=== PATIENT | male | born 1995 | race Caucasian/White ===

== ENCOUNTER 2017-02-02 00:17 | Emergency (ER) | payer OTHER ==
[~2017-02-02] VITALS: Ht 182.9 cm; Wt 84.0 kg
[2017-02-02 00:22] VITALS: BP 134/92; PULSE 87; TEMP 36.9; O2SAT 96; Ht 182.9 cm; Wt 84.0 kg
[2017-02-02] MEDS ORDERED: KETOROLAC TROMETHAMINE 60 MG/2 ML VIAL IM STA (00:31)
--- NOTE | 2017-02-02 00:57 | EMERGENCY ROOM VISIT NOTE ---
History First contact with patient: 00:24 Chief Complaint: BACK PAIN Stated Complaint: SEVERE BACK PAIN History of Present Illness The patient is a 22 year old male who presents to the Emergency Room with complaints of low back pain for the past few days it has a history of back pain. Patient states he thinks he might of slept on it wrong. Patient states because of the pain sometimes his legs feel weak but has no difficulty with ambulation. He describes the pain as aching, ranging in severity 7 out of 10 worse with movement and better with rest. Patient denies loss of bowel or bladder control, saddle anesthesia, fever, chills, IV drug abuse, abdominal pain , numbness, tingling. Patient denies fall or any trauma to his back. Review of Systems See HPI for pertinent positives & negatives. A total of 10 systems reviewed and were otherwise negative. Past Medical/Surgical History LBP Social History Smoking Status: Current Every Day Smoker Occupation Status: [employer] student Current/Historical Medications No Active Prescriptions or Reported Meds Allergies Coded Allergies: No Known Allergies (Unverified , 02/02/17) Physical Exam Vital Signs Date Time Temp Pulse Resp B/P Pulse Ox O2 Delivery O2 Flow Rate FiO2 02/02/17 00:22 36.9 87 16 134/92 96 Room Air Physical Exam VITALS: Vitals are noted on the nurse's note and reviewed by myself. Vital signs stable. GENERAL: Pleasant male ambulating around without difficulties, in no acute distress, nondiaphoretic, well-developed well-nourished. SKIN: Capillary reflex less than 2 seconds. HEENT: Normocephalic. PERRLA. EOMI. Nares patent. Mucous membranes moist. Neck is supple without nuchal rigidity. HEART: Regular rate and rhythm without murmurs gallops or rubs. LUNGS: Clear to auscultation bilaterally without wheezes, rales or rhonchi. No retractions or accessory muscle use. ABDOMEN: Positive bowel sounds x 4. Normal tympanic percussion. Soft, nontender, without masses or organomegaly. Carpenter sign negative. No guarding or rebound tenderness. MUSCULOSKELETAL: No gross musculoskeletal defects. No pedal edema. No calf tenderness. No thoracic or lumbar tenderness on exam. Negative straight leg raise. 5 out of 5 strength throughout. Patient can walk on toes and heels. NEURO: Patient was alert and oriented to person place and time. Normal sensation to light and sharp touch. Deep tendon reflexes 2+ patella bilaterally. No focal neurological deficits. Medical Decision & Procedures Medications Administered Medications (Trade) Dose Ordered Sig/Jagruti Route Start Time Stop Time Status Last Admin Dose Admin Ketorolac Tromethamine (Toradol Inj) 60 mg NOW STAT IM 02/02/17 00:31 02/02/17 00:32 DC 02/02/17 00:31 60 MG ED Course Prior records/ancillary studies reviewed. Triage Nursing notes reviewed. Additional history obtained from friend The patient's history was concerning for back pain. Differential diagnosis: Etiologies such as musculoskeletal, disc herniation, fracture, aortic disease, metastatic disease, cord compression, discitis, infection, renal colic, gastrointestinal, acute exacerbation of chronic back pain, sciatica, cauda equina, as well as others were entertained. Physical findings: As above. No focal neurologic findings noted. ER treatment provided: tordaol On reassessment the patient felt better. Diagnostics interpreted by me: deferred This appears to be consistent with lumbar strain. Patient is neurovascularly and neurologically intact. He felt much better and requested to leave. He was advised to stretch the area out and take anti-inflammatories as needed for the pain. He is advised to follow-up health services in a few days or here in the ER sooner for severe pain, inability to walk, numbness, tingling, worsening signs or symptoms or as needed. The patient's physical examination and detailed history did not reveal any red flags for back pain such as those listed in the differential diagnosis. Therefore advanced diagnostics and consultations were felt to be unwarranted. By the evaluation outlined above emergent etiologies such as fracture, aortic disease, metastatic disease, infection, renal colic, gastrointestinal, cord compression, cauda equina, as well as others were deemed relatively unlikely. The pt informed about the findings as listed above. All questions were answered and pleased with the treatment. Return instructions were outlined and the patient was discharged in stable condition. Referral: The patient was referred back to primary care physician for follow-up in 2 to 3 days for a recheck of the current condition. Medical Decision as above Impression Primary Impression: Lumbar strain Departure Information Dispostion Home / Self-Care Condition GOOD Prescriptions No Active Prescriptions or Reported Meds Forms HOME CARE DOCUMENTATION FORM, School Instructions, Return To School: 1 day IMPORTANT VISIT INFORMATION Patient Instructions Back Pain - [facility], My [facility] Additional Instructions Ibuprofen(Motrin, Advil) may be used for fever or pain. Use 600mg every six hours as needed. Take with food. Avoid using more than 2400mg in a 24 hour period. Do not use 2400mg per day for more than three consecutive days without physician direction. Prolonged inappropriate use can lead to stomach upset or ulcers. This medication can be taken if you need to drive, work, or perform activities which may be dangerous when taking narcotic pain medication. (AND/OR) Acetaminophen(Tylenol) may be used for fever or pain. Use 1000mg every six hours as needed. Avoid using more than 3000mg in a 24 hour period. This medication can be taken if you need to drive, work, or perform activities which may be dangerous when taking narcotic pain medication. Rest and avoid heavy lifting until your symptoms resolve and then gradually return to full activity. A good rule of thumb is if it hurts your back to perform a certain activity, then it should be avoided until you are healthy again. A heating pad, warm compresses, or a hot shower may help with tight muscles and can be done several times a day as needed. Continue current medications. Return to the ER immediately for any numbness, tingling, severe pain, loss of control of your bowels or bladder, inability to walk, or as needed. Follow up with your primary care physician within 3-5 days for a recheck of your current condition. School Instructions Return To School: 1 day Problem Qualifiers Primary Impression: Lumbar strain Encounter type: initial encounter Qualified Codes: S39.012A - Strain of muscle, fascia and tendon of lower back, initial encounter
[2017-02-02] MEDS ORDERED: CYCL10TA6 PO (21:26)
[2017-02-02] MEDS ORDERED: IBUP600T44 PO (21:26)
== END 2017-02-02 00:50 | disposition home or self-care (01) ==
LOC: C.EDB 00:18 → C.EDA 00:50
DX: S39.012A Strain of muscle, fascia and tendon of lower back, initial encounter (principal); X58.XXXA Exposure to other specified factors, initial encounter; F17.210 Nicotine dependence, cigarettes, uncomplicated

== ENCOUNTER 2017-02-02 17:00 | Emergency (ER) | payer OTHER ==
[~2017-02-02] VITALS: Ht 185.4 cm; Wt 96.0 kg
[2017-02-02 17:09] VITALS: Ht 185.4 cm; Wt 96.0 kg
[2017-02-02] MEDS ORDERED: KETOROLAC TROMETHAMINE 30 MG/ML VIAL IV STA (19:21)
[2017-02-02] MEDS ORDERED: ONDANSETRON INJ 2 MG/ML 2 ML VIAL IV STA (19:21)
[2017-02-02] MEDS ORDERED: MoRPHine SULFATE 4 MG/ML 1 ML CARP\\VIAL IV PRN (19:30)
--- NOTE | 2017-02-02 19:41 | EMERGENCY ROOM VISIT NOTE ---
History Report prepared by Christopher: Emanuel Johnson Under the Supervision of: Dr. Juan Antonio Lopes M.D. First contact with patient: 19:18 Chief Complaint: BACK PAIN Stated Complaint: BACK PAIN- REALLY BAD History of Present Illness The patient is a 22 year old male who presents to the Emergency Room with complaints of persistent lower back pain starting 2 days ago. The patient had a sudden onset of his pain. He has worsening pain with standing up and bending over. He has pain radiation down to bilateral lower extremities. He fell down twice today due to the severity of the pain. He currently rates a pain intensity of 10/10. He has been taking Advil without relief. The patient was evaluated in the Emergency Room earlier today for similar symptoms. He received a Toradol shot in the Emergency Room which provided him temporary relief. He woke up a few hours later with severe pain. He denies any falls or injuries prior to the onset of the pain. He denies any history of back pain. He denies fevers, cough, congestion, urinary symptoms, or any other complaints. Source of History: patient Onset: 2 days ago Position: back (lower) Symptom Intensity: 10/10 Timing: other (persistent ) Modifying Factors (Worsening): other (standing up and bending over) Modifying Factors (Relieving): other (Advil without relief; Toradol IM with temporary relief) Associated Symptoms: No cough, No fevers, No urinary symptoms Review of Systems See HPI for pertinent positives & negatives. A total of 10 systems reviewed and were otherwise negative. Past Medical & Surgical Medical Problems: (1) Blister of left heel Family History Patient reports no known family medical history. Social History Smoking Status: Current Every Day Smoker Marital Status: single Occupation Status: [employer] student Current/Historical Medications Scheduled Ibuprofen (Motrin), 600 MG PO TID Scheduled PRN Cyclobenzaprine Hcl (Flexeril), 10 MG PO TID PRN for Muscle Spasms Allergies Coded Allergies: No Known Allergies (Unverified , 02/02/17) Physical Exam Vital Signs Date Time Temp Pulse Resp B/P Pulse Ox O2 Delivery O2 Flow Rate FiO2 02/02/17 21:33 36.6 86 20 125/65 98 02/02/17 19:50 86 20 125/65 98 Room Air 02/02/17 17:09 36.6 91 18 138/72 98 Room Air Physical Exam GENERAL: Patient is in no acute distress. HEENT: No acute trauma, normocephalic atraumatic, mucous membranes moist, no nasal congestion, no scleral icterus. NECK: No stridor, no adenopathy, no meningismus, trachea is midline. LUNGS: Clear to auscultation bilaterally, no wheeze, no rhonchi, breath sounds equal. HEART: Without murmurs gallops or rubs, regular rate and rhythm. ABDOMEN: Soft, nontender, bowel sounds positive, no hernias, no peritonitis. BACK: Tenderness over the lower midline lumbar spine, no bony step off. Tenderness along both lower lumbar muscles. Pain worsens with movement. EXTREMITIES: No cyanosis or edema, full range of motion of all the joints without pain or difficulty, no signs for acute trauma. NEUROLOGIC: Oriented x 3, no acute motor or sensory deficits, no focal weakness. 2/4 patellar and Achilles reflexes bilaterally. SKIN: No rash, no jaundice, no diaphoresis. Medical Decision & Procedures ER Provider Diagnostic Interpretation: X-ray results as stated below per interpretation by me and the radiologist: LUMBAR SPINE 5 VIEWS HISTORY: Low Back pain COMPARISON: None. FINDINGS: There is no fracture. No subluxation. Disc spaces are preserved. IMPRESSION: No fracture or subluxation within the lumbar spine. Electronically signed by: Raulito Lorenzo M.D. 02/02/2017 8:15 PM Dictated Date/Time: 02/02/2017 8:14 PM Laboratory Results 02/02/17 19:50 Red Blood Count 5.60, Mean Corpuscular Volume 80.2, Mean Corpuscular Hemoglobin 28.4, Mean Corpuscular Hemoglobin Concent 35.4, Mean Platelet Volume 9.8, Neutrophils (%) (Auto) 65.5, Lymphocytes (%) (Auto) 25.2, Monocytes (%) (Auto) 7.3, Eosinophils (%) (Auto) 1.5, Basophils (%) (Auto) 0.2, Neutrophils # (Auto) 6.35, Lymphocytes # (Auto) 2.45, Monocytes # (Auto) 0.71, Eosinophils # (Auto) 0.15, Basophils # (Auto) 0.02 02/02/17 19:50 Test 02/02/17 19:50 White Blood Count 9.71 K/uL (4.8-10.8) Red Blood Count 5.60 M/uL (4.7-6.1) Hemoglobin 15.9 g/dL (14.0-18.0) Hematocrit 44.9 % (42-52) Mean Corpuscular Volume 80.2 fL (80-100) Mean Corpuscular Hemoglobin 28.4 pg (25-34) Mean Corpuscular Hemoglobin Concent 35.4 g/dl (32-36) Platelet Count 220 K/uL (130-400) Mean Platelet Volume 9.8 fL (7.4-10.4) Neutrophils (%) (Auto) 65.5 % Lymphocytes (%) (Auto) 25.2 % Monocytes (%) (Auto) 7.3 % Eosinophils (%) (Auto) 1.5 % Basophils (%) (Auto) 0.2 % Neutrophils # (Auto) 6.35 K/uL (1.4-6.5) Lymphocytes # (Auto) 2.45 K/uL (1.2-3.4) Monocytes # (Auto) 0.71 K/uL (0.11-0.59) Eosinophils # (Auto) 0.15 K/uL (0-0.5) Basophils # (Auto) 0.02 K/uL (0-0.2) RDW Standard Deviation 39.3 fL (36.4-46.3) RDW Coefficient of Variation 13.5 % (11.5-14.5) Immature Granulocyte % (Auto) 0.3 % Immature Granulocyte # (Auto) 0.03 K/uL (0.00-0.02) Erythrocyte Sedimentation Rate 7 mm/hr (0-14) Urine Color YELLOW Urine Appearance CLOUDY (CLEAR) Urine pH 6.0 (4.5-7.5) Urine Specific [place] 1.026 (1.000-1.030) Urine Protein NEG (NEG) Urine Glucose (UA) NEG (NEG) Urine Ketones NEG (NEG) Urine Occult Blood NEG (NEG) Urine Nitrite NEG (NEG) Urine Bilirubin NEG (NEG) Urine Urobilinogen NEG (NEG) Urine Leukocyte Esterase NEG (NEG) Urine WBC (Auto) 1-5 /hpf (0-5) Urine RBC (Auto) 0-4 /hpf (0-4) Urine Hyaline Casts (Auto) 1-5 /lpf (0-5) Urine Epithelial Cells (Auto) 20-30 /lpf (0-5) Urine Bacteria (Auto) NEG (NEG) Anion Gap 5.0 mmol/L (3-11) Est Creatinine Clear Calc Drug Dose 143.9 ml/min Estimated GFR () 125.0 Estimated GFR (Non- 107.9 BUN/Creatinine Ratio 16.9 (10-20) Calcium Level 9.1 mg/dl (8.5-10.1) C-Reactive Protein 0.34 mg/dl (0-0.29) Laboratory results reviewed by me. Medications Administered Medications (Trade) Dose Ordered Sig/Jagruti Route Start Time Stop Time Status Last Admin Dose Admin Ondansetron HCl (Zofran Inj) 4 mg NOW STAT IV 02/02/17 19:21 02/02/17 19:25 DC 02/02/17 19:41 4 MG Morphine Sulfate (MoRPHine SULFATE INJ) 4 mg Q15M PRN IV 02/02/17 19:30 02/02/17 22:02 DC 02/02/17 19:41 4 MG Ketorolac Tromethamine (Toradol Inj) 30 mg NOW STAT IV 02/02/17 19:21 02/02/17 19:25 DC 02/02/17 19:41 30 MG Cyclobenzaprine HCl (FLEXERIL 10MG Home Pack) 1 homepack UD ONCE PO 02/02/17 21:30 02/02/17 21:31 DC 02/02/17 21:33 1 HOMEPACK ED Course 1917: The patient was evaluated in room B03A. A complete history and physical exam was performed. 1920: Toradol Inj 30 mg IV, Zofran Inj 4 mg IV 1929: Morphine Sulfate 4 mg IV 2119: Reevaluated the patient. Discussed results and discharge instructions: He verbalized understanding and agreement. The patient is ready for discharge. 2129: Cyclobenzaprine HCl 1 homepack PO Medical Decision Differential diagnosis includes but is not limited to lumbar strain, lumbar fracture, herniated disc, lumbar stenosis, UTI, renal colic, abscess. There is no leukocytosis or concerning anemia. No significant electrolyte abnormality or kidney failure. Sedimentation rate is not significantly elevated. Urinalysis does not show hematuria or evidence for infection. Lumbar spine series shows some spasm of the muscles of the lumbar spine, no fracture or bony dislocation noted. On exam, the patient was not febrile or toxic. His reflexes were intact and normal bilaterally in both lower extremities. No focal neurologic deficits were identified. The patient's back pain did worsen with palpation and certain movements. The patient's pain seems musculoskeletal. He was given IV Zofran, IV morphine, IV Toradol. He seems improved but still has some pain with certain movement. Patient was felt stable for discharge. He is being discharged on Motrin and Flexeril, heat, massage and stretching were encouraged. He should avoid lifting. Upon discharge, the patient didn't quite feel right. He sat back down on the edge of the stretcher. I was going back to talk with him and he then got up and left. He felt better after sitting and getting his equilibrium back. He certainly may have been hit hard by the medications administered. In short, the patient was encouraged to return for worsening symptoms. He needs to rest, his workup was reassuring. Impression Primary Impression: Lower back pain Scribe Attestation The scribe's documentation has been prepared under my direction and personally reviewed by me in its entirety. I confirm that the note above accurately reflects all work, treatment, procedures, and medical decision making performed by me. Departure Information Dispostion Home / Self-Care Prescriptions Ibuprofen (Motrin) 600 Mg Tab 600 MG PO TID, #15 TAB With Food Prov: Juan Antonio Lopes M.D. 02/02/17 Cyclobenzaprine Hcl (FLEXERIL) 10 Mg Tab 10 MG PO TID Y for Muscle Spasms, #21 TAB Prov: Juan Antonio Lopes M.D. 02/02/17 Referrals No Doctor, Assigned (PCP) [facility] Forms HOME CARE DOCUMENTATION FORM, IMPORTANT VISIT INFORMATION Patient Instructions My [facility] Additional Instructions motrin 600 mg 3x per day for 5 days flexeril 3x per day for muscle relaxation no lifting or bending or stooping rest heat to the lower back will help massage may help return for fever or worsening symptoms
[2017-02-02 20:06] LABS: BASO % 0.2 %; BASO ABS # 0.02 K/uL (0-0.2); COMPLETE YES; EOS % 1.5 %; HEMATOCRIT 44.9 % (42-52); IG% 0.3 %; LYMPH % 25.2 %; LYMPH ABS # 2.45 K/uL (1.2-3.4); MEAN CELL VOLUME 80.2 fL (80-100); MEAN CORPUSCULAR HEMOGLOBIN 28.4 pg (25-34); MEAN CORPUSCULAR HGB CONC 35.4 g/dl (32-36); MEAN PLATELET VOLUME 9.8 fL (7.4-10.4); MONO % 7.3 %; NEUT % 65.5 %; PLATELET COUNT 220 K/uL (130-400); WHITE BLOOD COUNT 9.71 K/uL (4.8-10.8)
[2017-02-02 20:09] LABS: URINE APPEARANCE CLOUDY (CLEAR); URINE BILIRUBIN NEG (NEG); URINE COLOR YELLOW; URINE EPITHELIAL CELL AUTO 20-30 /lpf (0-5); URINE NITRITE NEG (NEG); URINE SPECIFIC GRAVITY 1.026 (1.000-1.030); UROBILINOGEN NEG (NEG); ZZUR CULT IF INDIC CLEAN CATCH NO
[2017-02-02 20:11] LABS: MANUAL MICROSCOPIC REQUIRED? NO; REVIEW REQ? NO
--- NOTE | 2017-02-02 20:17 | DIAGNOSTIC IMAGING REPORT ---
LUMBAR SPINE 5 VIEWS HISTORY: Low Back pain COMPARISON: None. FINDINGS: There is no fracture. No subluxation. Disc spaces are preserved. IMPRESSION: No fracture or subluxation within the lumbar spine. Electronically signed by: Raulito Lorenzo M.D. 02/02/2017 8:15 PM Dictated Date/Time: 02/02/2017 8:14 PM
[2017-02-02 20:29] LABS: BUN/CREATININE RATIO 16.9 (10-20); C-REACTIVE PROTEIN 0.34 mg/dl (0-0.29); CALCIUM 9.1 mg/dl (8.5-10.1); POTASSIUM 3.8 mmol/L (3.5-5.1)
[2017-02-02] MEDS ORDERED: IBUP600T44 PO (21:26)
[2017-02-02] MEDS ORDERED: CYCL10TA6 PO (21:26)
[2017-02-02] MEDS ORDERED: FLEXERIL HOME PACK 10 MG VIAL PO ONE (21:30)
[2017-02-02 21:33] VITALS: BP 125/65; PULSE 86; TEMP 36.6; O2SAT 98
== END 2017-02-02 21:35 | disposition home or self-care (01) ==
LOC: C.EDB 17:01
DX: M54.5 Low back pain (principal); W19.XXXA Unspecified fall, initial encounter; F17.210 Nicotine dependence, cigarettes, uncomplicated

== ENCOUNTER 2017-04-23 22:07 | Emergency (ER) | payer OTHER ==
[~2017-04-23] VITALS: Ht 188 cm; Wt 94.0 kg
[~2017-04-23 22:07] MED LIST: IBUP600T44 PO
[2017-04-23 22:12] VITALS: Ht 188 cm; Wt 94.0 kg
[2017-04-23] MEDS ORDERED: KETOROLAC TROMETHAMINE 30 MG/ML VIAL IV STA (22:34)
[2017-04-23] MEDS ORDERED: SODIUM CHLORIDE 0.9% 1000ML 2,000 ML IV STA (22:34)
[2017-04-23 23:00] LABS: BASO % 0.1 %; BASO ABS # 0.01 K/uL (0-0.2); COMPLETE YES; EOS % 1.2 %; HEMATOCRIT 44.2 % (42-52); IG% 0.3 %; LYMPH % 19.3 %; LYMPH ABS # 1.33 K/uL (1.2-3.4); MEAN CELL VOLUME 78.5 fL (80-100); MEAN CORPUSCULAR HEMOGLOBIN 28.4 pg (25-34); MEAN CORPUSCULAR HGB CONC 36.2 g/dl (32-36); MEAN PLATELET VOLUME 9.3 fL (7.4-10.4); NEUT % 72.1 %; PLATELET COUNT 170 K/uL (130-400); RED BLOOD COUNT 5.63 M/uL (4.7-6.1); WHITE BLOOD COUNT 6.88 K/uL (4.8-10.8)
--- NOTE | 2017-04-23 23:02 | DIAGNOSTIC IMAGING REPORT ---
CHEST 2 VIEWS ROUTINE CLINICAL HISTORY: cough/fever COMPARISON STUDY: No previous studies for comparison. FINDINGS: The cardiac and mediastinal contours are normal. There is no evidence of focal pulmonary consolidation. There is no evidence of failure. No pleural effusions are visualized.[ IMPRESSION: No active disease in the chest. Electronically signed by: Richy Aguayo M.D. 04/23/2017 11:01 PM Dictated Date/Time: 04/23/2017 11:00 PM
[2017-04-23 23:17] LABS: BUN/CREATININE RATIO 10.1 (10-20); CALCIUM 8.3 mg/dl (8.5-10.1); POTASSIUM 3.6 mmol/L (3.5-5.1)
[2017-04-24 00:08] LABS: URINE APPEARANCE CLEAR (CLEAR); URINE BILIRUBIN NEG (NEG); URINE COLOR YELLOW; URINE EPITHELIAL CELL AUTO 20-30 /lpf (0-5); URINE NITRITE NEG (NEG); URINE PH 6.5 (4.5-7.5); URINE SPECIFIC GRAVITY 1.015 (1.000-1.030); UROBILINOGEN NEG (NEG); ZZUR CULT IF INDIC CLEAN CATCH NO
[2017-04-24 00:21] LABS: MANUAL MICROSCOPIC REQUIRED? NO; REVIEW REQ? NO
[2017-04-24 00:42] LABS: INFLUENZA A PCR Neg for Influ A (NEG); INFLUENZA B PCR Neg for Influ B (NEG)
[2017-04-24 01:10] VITALS: BP 116/66; PULSE 85; TEMP 37; O2SAT 98
--- NOTE | 2017-04-24 02:03 | EMERGENCY ROOM VISIT NOTE ---
History First contact with patient: 22:25 Chief Complaint: FEVER Stated Complaint: FEVER,BACK PAIN History of Present Illness The patient is a 22 year old male who presents to the Emergency Room with complaints of fever, chills, myalgias and arthralgias with low back pain for the past 4 days. Patient flew back from [facility] 4 days ago. Patient states that history chronic back pain and symptoms feel similar. Patient denies IV drug abuse, chest pain, dyspnea, headache, neck stiffness, sore throat, earache, sinus pain or congestion, abdominal pain, vomiting, diarrhea, testicular pain, penile pain. He took Tylenol 2 hours ago. No travel to [place] or to [place]. Review of Systems See HPI for pertinent positives & negatives. A total of 10 systems reviewed and were otherwise negative. Past Medical/Surgical History Medical Problems: (1) Blister of left heel back pain Family History Patient reports no known family medical history. Social History Smoking Status: Current Every Day Smoker Drug Use: none Marital Status: single Occupation Status: [employer] student Current/Historical Medications No Active Prescriptions or Reported Meds Allergies Coded Allergies: No Known Allergies (Unverified , 02/02/17) Physical Exam Vital Signs Date Time Temp Pulse Resp B/P (MAP) Pulse Ox O2 Delivery O2 Flow Rate FiO2 04/24/17 01:10 37.0 85 16 116/66 98 Room Air 04/23/17 23:42 37.1 91 16 122/62 98 Room Air 04/23/17 22:12 37.7 131 20 121/69 96 Room Air Physical Exam VITALS: Vitals are noted on the nurse's note and reviewed by myself. Vital signs febrile GENERAL:pleasant male, in no acute distress, nondiaphoretic, well-developed well -nourished. SKIN: The skin was without rashes, erythema, edema, or bruising. There is no tenting of the skin. Capillary reflex less than 2 seconds. HEAD: Normocephalic atraumatic. EARS: External auditory canals clear, tympanic membranes pearly null without erythema or effusion bilaterally. EYES: Pupils equal round and reactive to light and accommodation. Conjunctivae without injection, sclerae without icterus. Extraocular movements intact. NOSE: Patent, turbinates without inflammation or discharge. No sinus tenderness. MOUTH: Mucous membranes mildly dry . Pharynx without erythema or exudate. Uvula midline. Airway patent. Tongue does not deviate. NECK: Supple without nuchal rigidity. No lymphadenopathy. No thyromegaly. Cervical spine is nontender. No JVD. No meningeal signs HEART: Regular rate and rhythm without murmurs gallops or rubs. LUNGS: Clear to auscultation bilaterally without wheezes, rales or rhonchi. No dullness to percussion. No retractions or accessory muscle use. ABDOMEN: Positive bowel sounds x 4. Normal tympanic percussion. Soft, nontender, without masses or organomegaly. Carpenter sign negative. No guarding or rebound tenderness. No CVA tenderness MUSCULOSKELETAL: No muscle atrophy, erythema, or edema noted. No thoracic or lumbar tenderness on exam. Negative straight leg raise. Patient can walk on toes and heels. NEURO: Patient was alert and oriented to person place and time. Normal sensation to light and sharp touch. No focal neurological deficits. Medical Decision & Procedures Laboratory Results 04/23/17 22:47 Red Blood Count 5.63, Mean Corpuscular Volume 78.5, Mean Corpuscular Hemoglobin 28.4, Mean Corpuscular Hemoglobin Concent 36.2, Mean Platelet Volume 9.3, Neutrophils (%) (Auto) 72.1, Lymphocytes (%) (Auto) 19.3, Monocytes (%) (Auto) 7.0, Eosinophils (%) (Auto) 1.2, Basophils (%) (Auto) 0.1, Neutrophils # (Auto) 4.96, Lymphocytes # (Auto) 1.33, Monocytes # (Auto) 0.48, Eosinophils # (Auto) 0.08, Basophils # (Auto) 0.01 04/23/17 22:47 Test 04/23/17 22:46 04/23/17 22:47 04/23/17 22:56 04/23/17 23:50 Influenza Type A (RT-PCR) Neg for Influ A (NEG) Influenza Type A Antigen Neg for Influ A (NEG) Influenza Type B Antigen Neg for Influ B (NEG) Influenza Type B (RT-PCR) Neg for Influ B (NEG) White Blood Count 6.88 K/uL (4.8-10.8) Red Blood Count 5.63 M/uL (4.7-6.1) Hemoglobin 16.0 g/dL (14.0-18.0) Hematocrit 44.2 % (42-52) Mean Corpuscular Volume 78.5 fL (80-100) Mean Corpuscular Hemoglobin 28.4 pg (25-34) Mean Corpuscular Hemoglobin Concent 36.2 g/dl (32-36) Platelet Count 170 K/uL (130-400) Mean Platelet Volume 9.3 fL (7.4-10.4) Neutrophils (%) (Auto) 72.1 % Lymphocytes (%) (Auto) 19.3 % Monocytes (%) (Auto) 7.0 % Eosinophils (%) (Auto) 1.2 % Basophils (%) (Auto) 0.1 % Neutrophils # (Auto) 4.96 K/uL (1.4-6.5) Lymphocytes # (Auto) 1.33 K/uL (1.2-3.4) Monocytes # (Auto) 0.48 K/uL (0.11-0.59) Eosinophils # (Auto) 0.08 K/uL (0-0.5) Basophils # (Auto) 0.01 K/uL (0-0.2) RDW Standard Deviation 36.7 fL (36.4-46.3) RDW Coefficient of Variation 13.0 % (11.5-14.5) Immature Granulocyte % (Auto) 0.3 % Immature Granulocyte # (Auto) 0.02 K/uL (0.00-0.02) Anion Gap 9.0 mmol/L (3-11) Est Creatinine Clear Calc Drug Dose 137.1 ml/min Estimated GFR () 125.0 Estimated GFR (Non- 107.9 BUN/Creatinine Ratio 10.1 (10-20) Calcium Level 8.3 mg/dl (8.5-10.1) Bedside Lactic Acid Venous 1.12 mmol/L (0.90-1.70) Urine Color YELLOW Urine Appearance CLEAR (CLEAR) Urine pH 6.5 (4.5-7.5) Urine Specific [place] 1.015 (1.000-1.030) Urine Protein NEG (NEG) Urine Glucose (UA) NEG (NEG) Urine Ketones NEG (NEG) Urine Occult Blood TRACE (NEG) Urine Nitrite NEG (NEG) Urine Bilirubin NEG (NEG) Urine Urobilinogen NEG (NEG) Urine Leukocyte Esterase TRACE (NEG) Urine WBC (Auto) 5-10 /hpf (0-5) Urine RBC (Auto) 0-4 /hpf (0-4) Urine Hyaline Casts (Auto) 1-5 /lpf (0-5) Urine Epithelial Cells (Auto) 20-30 /lpf (0-5) Urine Bacteria (Auto) NEG (NEG) Medications Administered Medications (Trade) Dose Ordered Sig/Jagruti Route Start Time Stop Time Status Last Admin Dose Admin Ketorolac Tromethamine (Toradol Inj) 30 mg NOW STAT IV 04/23/17 22:34 04/23/17 22:37 DC 04/23/17 23:40 30 MG Sodium Chloride 2,000 ml @ 999 mls/hr Q2H1M STAT IV 04/23/17 22:34 04/24/17 00:34 DC 04/23/17 22:34 999 MLS/HR ED Course Prior records/ancillary studies reviewed. Triage Nursing notes reviewed. The patient's history was concerning for fever. Differential diagnosis: Etiologies such as viral syndrome, otitis, pharyngitis, pneumonia, influenza, meningitis, urinary tract infection, sepsis, bacteremia, as well as others were entertained. Physical examination: Patient is alert, interactive and well-appearing ER treatment provided: NSS On reassessment the patient felt better. Diagnostics interpreted by me: The labs revealed negative lactic acid. No leukocytosis. Blood cultures pending Imaging studies: CHEST 2 VIEWS ROUTINE CLINICAL HISTORY: cough/fever COMPARISON STUDY: No previous studies for comparison. FINDINGS: The cardiac and mediastinal contours are normal. There is no evidence of focal pulmonary consolidation. There is no evidence of failure. No pleural effusions are visualized.[ IMPRESSION: No active disease in the chest. Electronically signed by: Richy Aguayo M.D. This appears to be consistent with fever most afebrile in etiology. Patient is well-appearing. Patient had no history of IV drug abuse and adamantly he denied this. He had no lumbar spinal tenderness on clinical exam. He had no vertebral spinal tenderness at all. He states he felt much better after being medicated as above. He was advised to return to the ER immediately for high fevers, neck stiffness, lethargy, worsening signs or symptoms or as needed. Patient was neurovascularly and neurologically intact. He did not have acute abdomen on exam. No pneumonia on x-ray.. By the evaluation outlined above emergent etiologies such as otitis, pharyngitis, pneumonia, meningitis, urinary tract infection, sepsis, bacteremia, as well as others were deemed relatively unlikely. Patient also denied travel to any other place besides [facility]. He was visiting his family. The pt informed about the findings as listed above. All questions were answered and pleased with the treatment. Return instructions were outlined and the patient was discharged in stable condition. case reviewed with my Attending Referral: The patient was referred back to their primary care physician for follow-up in 2 to 3 days for a recheck of the current condition. Case reviewed with my attending Medical Decision as above Impression Primary Impression: Fever Departure Information Prescriptions No Active Prescriptions or Reported Meds Referrals No Doctor, Assigned (PCP) Patient Instructions My [facility] Problem Qualifiers Primary Impression: Fever Fever type: unspecified Qualified Codes: R50.9 - Fever, unspecified
== END 2017-04-24 01:14 | disposition home or self-care (01) ==
LOC: C.EDB 22:08 → C.EDC 04-24 01:14
DX: R50.9 Fever, unspecified (principal); M79.1 Myalgia; F17.200 Nicotine dependence, unspecified, uncomplicated

== ENCOUNTER 2017-05-01 22:24 | Emergency (ER) | payer OTHER ==
[~2017-05-01] VITALS: Ht 182.9 cm; Wt 92.8 kg
[2017-05-01 22:27] VITALS: TEMP 36.7; Ht 182.9 cm; Wt 92.8 kg
[2017-05-01] MEDS ORDERED: SODIUM CHLORIDE 0.9% 1000ML 1,000 ML IV STA (22:43)
[2017-05-01 23:08] LABS: BASO % 0.1 %; BASO ABS # 0.01 K/uL (0-0.2); COMPLETE YES; EOS % 1.5 %; HEMATOCRIT 42.8 % (42-52); IG% 0.4 %; LYMPH % 24.4 %; LYMPH ABS # 1.66 K/uL (1.2-3.4); MEAN CELL VOLUME 78.2 fL (80-100); MEAN CORPUSCULAR HEMOGLOBIN 27.8 pg (25-34); MEAN CORPUSCULAR HGB CONC 35.5 g/dl (32-36); MEAN PLATELET VOLUME 9.8 fL (7.4-10.4); MONO % 7.4 %; NEUT % 66.2 %; PLATELET COUNT 174 K/uL (130-400); RED BLOOD COUNT 5.47 M/uL (4.7-6.1)
[2017-05-01] MEDS ORDERED: OPTIRAY 320 IV PRN (23:15)
[2017-05-01 23:30] LABS: BUN/CREATININE RATIO 12.4 (10-20); CREATININE 0.99 mg/dl (0.60-1.40); POTASSIUM 3.4 mmol/L (3.5-5.1)
[2017-05-01 23:33] LABS: ALB/GLOB RATIO 0.8 (0.9-2)
[2017-05-02 00:01] LABS: URINE APPEARANCE CLEAR (CLEAR); URINE BILIRUBIN NEG (NEG); URINE COLOR YELLOW; URINE NITRITE NEG (NEG); URINE SPECIFIC GRAVITY 1.013 (1.000-1.030); UROBILINOGEN NEG (NEG); ZZUR CULT IF INDIC CLEAN CATCH NO
[2017-05-02 00:14] LABS: MANUAL MICROSCOPIC REQUIRED? NO; REVIEW REQ? NO
[2017-05-02 00:22] LABS: LYME DISEASE AB IGG NEG (NEG); LYME DISEASE AB IGM NEG (NEG)
[2017-05-02] MEDS ORDERED: IBUPROFEN 800 MG TAB PO STA (02:59)
--- NOTE | 2017-05-02 03:01 | EMERGENCY ROOM VISIT NOTE ---
History First contact with patient: 22:33 Chief Complaint: FEVER Stated Complaint: FEVER, STOMACH ACHE History of Present Illness The patient is a 22 year old male who presents to the Emergency Room with complaints of fever and abdominal pain. The patient states that last week, he developed a fever and body aches. He was seen here with a negative workup. He states that this week, he has had similar symptoms but developed a stomach ache , diarrhea and dysuria today. He states his fever has been persistent, but has not been taking his temperature at home. He has been taking Tylenol at home for symptoms. He denies any blood in the stools, nausea or vomiting. He denies any history of abdominal surgery. Review of Systems A complete 10 point review of systems was reviewed with the patient with pertinent positives and negatives as per history of present illness. All else were negative. Past Medical/Surgical History Medical Problems: (1) Blister of left heel Family History Patient reports no known family medical history. Social History Smoking Status: Current Every Day Smoker Drug Use: none Marital Status: single Occupation Status: [employer] student Current/Historical Medications Scheduled PRN Dicyclomine Hcl (Bentyl), 1 CAP PO TID PRN for Pain Allergies Coded Allergies: No Known Allergies (Unverified , 02/02/17) Physical Exam Vital Signs Date Time Temp Pulse Resp B/P (MAP) Pulse Ox O2 Delivery O2 Flow Rate FiO2 05/02/17 03:22 100 19 120/73 100 05/02/17 01:25 77 18 120/68 98 Room Air 05/01/17 23:26 77 18 132/81 99 Room Air 05/01/17 22:27 36.7 102 18 130/86 99 Room Air Physical Exam VITALS: Vitals are noted on the nurse's note and reviewed by myself. Vital signs stable. GENERAL: This is a 22-year-old male, in no acute distress, nondiaphoretic, well- developed well-nourished. HEENT: Normocephalic. PERRLA. EOMI. Nares patent. Mucous membranes moist. Neck is supple without nuchal rigidity. HEART: Regular rate and rhythm without murmurs gallops or rubs. LUNGS: Clear to auscultation bilaterally without wheezes, rales or rhonchi. ABDOMEN: Positive bowel sounds x 4. Soft, mild tenderness in the suprapubic region and right lower quadrant. No guarding or rebound tenderness. NEURO: Patient was alert and oriented to person place and time. Medical Decision & Procedures ER Provider Diagnostic Interpretation: CT ABDOMEN & PELVIS: Normal appendix. Colonic haustral/mural thickening, likely involving entire colon, although evaluation of transverse colon and distal is limited by med or distention. Mild adjacent fat stranding of the ascending colon. Findings are compatible with colitis which may be infectious or inflammatory in etiology. Mild prominence of mesenteric lymph nodes, not significantly enlarged. No bowel obstruction. No free air or free fluid. 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 Solid organs otherwise unremarkable. Radiologist: Rangel Marcus MD Laboratory Results 05/01/17 23:00 Red Blood Count 5.47, Mean Corpuscular Volume 78.2, Mean Corpuscular Hemoglobin 27.8, Mean Corpuscular Hemoglobin Concent 35.5, Mean Platelet Volume 9.8, Neutrophils (%) (Auto) 66.2, Lymphocytes (%) (Auto) 24.4, Monocytes (%) (Auto) 7.4, Eosinophils (%) (Auto) 1.5, Basophils (%) (Auto) 0.1, Neutrophils # (Auto) 4.50, Lymphocytes # (Auto) 1.66, Monocytes # (Auto) 0.50, Eosinophils # (Auto) 0.10, Basophils # (Auto) 0.01 05/01/17 23:00 Test 05/01/17 23:00 05/01/17 23:05 05/01/17 23:41 White Blood Count 6.80 K/uL (4.8-10.8) Red Blood Count 5.47 M/uL (4.7-6.1) Hemoglobin 15.2 g/dL (14.0-18.0) Hematocrit 42.8 % (42-52) Mean Corpuscular Volume 78.2 fL (80-100) Mean Corpuscular Hemoglobin 27.8 pg (25-34) Mean Corpuscular Hemoglobin Concent 35.5 g/dl (32-36) Platelet Count 174 K/uL (130-400) Mean Platelet Volume 9.8 fL (7.4-10.4) Neutrophils (%) (Auto) 66.2 % Lymphocytes (%) (Auto) 24.4 % Monocytes (%) (Auto) 7.4 % Eosinophils (%) (Auto) 1.5 % Basophils (%) (Auto) 0.1 % Neutrophils # (Auto) 4.50 K/uL (1.4-6.5) Lymphocytes # (Auto) 1.66 K/uL (1.2-3.4) Monocytes # (Auto) 0.50 K/uL (0.11-0.59) Eosinophils # (Auto) 0.10 K/uL (0-0.5) Basophils # (Auto) 0.01 K/uL (0-0.2) RDW Standard Deviation 36.9 fL (36.4-46.3) RDW Coefficient of Variation 13.0 % (11.5-14.5) Immature Granulocyte % (Auto) 0.4 % Immature Granulocyte # (Auto) 0.03 K/uL (0.00-0.02) Anion Gap 8.0 mmol/L (3-11) Est Creatinine Clear Calc Drug Dose 130.7 ml/min Estimated GFR () 126.5 Estimated GFR (Non- 109.2 BUN/Creatinine Ratio 12.4 (10-20) Calcium Level 8.0 mg/dl (8.5-10.1) Total Bilirubin 0.4 mg/dl (0.2-1) Aspartate Amino Transf (AST/SGOT) 31 U/L (15-37) Alanine Aminotransferase (ALT/SGPT) 143 U/L (12-78) Alkaline Phosphatase 100 U/L (45-117) Total Protein 7.7 gm/dl (6.4-8.2) Albumin 3.5 gm/dl (3.4-5.0) Globulin 4.2 gm/dl (2.5-4.0) Albumin/Globulin Ratio 0.8 (0.9-2) Lipase 139 U/L (73-393) Lyme Disease IgG Antibody NEG (NEG) Lyme Disease IgM Antibody NEG (NEG) Monoscreen NEG (NEG) Urine Color YELLOW Urine Appearance CLEAR (CLEAR) Urine pH 7.0 (4.5-7.5) Urine Specific [place] 1.013 (1.000-1.030) Urine Protein NEG (NEG) Urine Glucose (UA) NEG (NEG) Urine Ketones NEG (NEG) Urine Occult Blood TRACE (NEG) Urine Nitrite NEG (NEG) Urine Bilirubin NEG (NEG) Urine Urobilinogen NEG (NEG) Urine Leukocyte Esterase NEG (NEG) Urine WBC (Auto) 1-5 /hpf (0-5) Urine RBC (Auto) 0-4 /hpf (0-4) Urine Hyaline Casts (Auto) 0 /lpf (0-5) Urine Epithelial Cells (Auto) 10-20 /lpf (0-5) Urine Bacteria (Auto) NEG (NEG) Medications Administered Medications (Trade) Dose Ordered Sig/Jagruti Route Start Time Stop Time Status Last Admin Dose Admin Sodium Chloride 1,000 ml @ 999 mls/hr Q1H1M STAT IV 05/01/17 22:43 05/01/17 23:43 DC 05/01/17 22:43 999 MLS/HR Ibuprofen (Motrin Tab) 800 mg NOW STAT PO 05/02/17 02:59 05/02/17 03:01 DC 05/02/17 02:59 800 MG ED Course The patient was evaluated as above. Labs were drawn and IV access was obtained. Patient was medicated with [address] of the abdomen and pelvis was performed and read by kathy as above. Patient was reevaluated and findings were discussed. He was given 800 mg ibuprofen for pain. Discharge instructions were reviewed with the patient. The patient verbalized understanding of my assessment and treatment plan and was discharged home in good condition. Medical Decision Differential diagnosis includes viral illness, gastroenteritis, colitis, mesenteric adenitis, appendicitis, cholecystitis, urinary tract infection, among others. The patient is a 22-year-old male who presents today complaining of with fever as well as diarrhea and vomiting. Labs revealed no leukocytosis, anemia or concerning electrolyte abnormalities. Urinalysis was not suggestive of infection. Patient is afebrile and vital signs are stable. CT of the abdomen and pelvis showed evidence of a nonspecific colitis. The patient was not able to provide a stool sample while in the emergency department. He was given an order to have his stool tested as an outpatient. He was given a prescription for Bentyl. Conservative measures were discussed and the patient was encouraged to follow-up with [facility] within 48 hours. The patient's case was reviewed with Dr. Navarro, ED attending physician, who agreed with my assessment and treatment plan. Based on the patient's presentation and work up, I feel the patient is stable for outpatient treatment. The patient was educated to return to the emergency department for any worsening of their current condition or new/concerning symptoms. He will follow up with [facility]. Medication reconciliation: I attest that I have personally reviewed the patient 's current medication list. Blood pressure screening: Patient was found to have normal blood pressure on screening and does not require follow-up. Impression Primary Impression: Colitis Departure Information Dispostion Home / Self-Care Condition GOOD Prescriptions Dicyclomine Hcl (BENTYL) 10 Mg Cap 1 CAP PO TID Y for Pain for 7 Days, #21 CAP Prov: Aissatou Cruz ., KAYA 05/02/17 Referrals [facility] (PCP) Patient Instructions My [facility] Additional Instructions For pain/fever control, you can use the following [id number] medicines ( if >12 yo): - Regular strength (325mg/tab) Tylenol (acetaminophen) 2 tabs every 4-6 hours as needed. Do not exceed 12 tablets in a 24 hour period. Avoid taking more than 4 grams (4000 mg) of Tylenol per day. This includes any other sources of acetaminophen you may take on a regular basis. - Regular strength (200 mg/tab) Advil (ibuprofen) 1-2 tabs every 4-6 hours as needed. Do not exceed a dose of 3200 mg per day. Take your stool sample to the lab to have it tested. Drink plenty of fluids, especially water or Gatorade. Call [facility] on Wednesday to schedule follow-up within 48 hours. Return to the emergency department with worsening pain, high fevers not controlled by Tylenol/ibuprofen, vomiting or any other new/concerning symptoms.
[2017-05-02] MEDS ORDERED: DICY10CA55 PO (03:03)
[2017-05-02 03:22] VITALS: BP 120/73; PULSE 100; O2SAT 100
--- NOTE | 2017-05-02 07:58 | DIAGNOSTIC IMAGING REPORT ---
ABDOMEN AND PELVIS CT WITH IV AND ORAL CONTRAST CT DOSE: 583.24 mGy.cm HISTORY: RLQ pain, fever TECHNIQUE: Multiaxial CT images of the abdomen and pelvis were performed following the use of intravenous and oral contrast. COMPARISON STUDY: None. FINDINGS: The lung bases are clear. The liver, gallbladder, spleen, adrenal glands, pancreas, and right kidney are unremarkable. 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 A few enlarged mesenteric lymph nodes. Dominant lymph node measures 2.6 x 1.1 cm. Normal bladder. Normal appendix. No evidence for bowel obstruction. Mild bowel wall thickening involving the transverse colon, descending colon, and sigmoid colon. This is consistent with a nonspecific colitis. IMPRESSION: 1. Thickening involving the majority of the colon as described above consistent with a nonspecific colitis. 2. Mesenteric lymphadenopathy. This could be reactive. However, one month abdomen and pelvis CT follow up is recommended to ensure resolution. 3. Normal appendix. Electronically signed by: Raulito Lorenzo M.D. 05/02/2017 7:57 AM Dictated Date/Time: 05/02/2017 7:53 AM
== END 2017-05-02 03:24 | disposition home or self-care (01) ==
LOC: C.EDB 22:25
DX: K52.9 Noninfective gastroenteritis and colitis, unspecified (principal); F17.210 Nicotine dependence, cigarettes, uncomplicated

== ENCOUNTER 2017-07-27 17:33 | Emergency (ER) | payer OTHER ==
[~2017-07-27] VITALS: Ht 182.9 cm; Wt 89.4 kg
[2017-07-27 17:49] VITALS: Ht 182.9 cm; Wt 89.4 kg
[2017-07-27] MEDS ORDERED: SODIUM CHLORIDE 0.9% 1000ML 1,000 ML IV ONE (18:45)
[2017-07-27] MEDS ORDERED: KETOROLAC TROMETHAMINE 30 MG/ML VIAL IV STA (18:45)
--- NOTE | 2017-07-27 19:04 | EMERGENCY ROOM VISIT NOTE ---
History First contact with patient: 18:24 Chief Complaint: FEVER Stated Complaint: FEVER, SORE THROAT History of Present Illness The patient is a 22 year old male who presents to the Emergency Room with complaints of a fever and sore throat for the last 3 days. The patient did not take his temperature at home. He denies any sick contacts. He has been trying Tylenol with minimal relief of his symptoms. He is up-to-date on his vaccines. The patient traveled from his home country of [facility] approximately 1 month ago. He denies any significant headache or neck pain. Review of Systems 10 system review performed and negative unless noted in HPI or below Past Medical/Surgical History Medical Problems: (1) Blister of left heel Otherwise healthy Family History Patient reports no known family medical history. Cancer, hypertension Social History Smoking Status: Current Every Day Smoker Drug Use: none Marital Status: single Occupation Status: [employer] student Current/Historical Medications Scheduled Amoxicillin (Amoxil), 1 CAP PO TID Physical Exam Vital Signs Date Time Temp Pulse Resp B/P (MAP) Pulse Ox O2 Delivery O2 Flow Rate FiO2 07/27/17 20:54 93 16 125/82 99 07/27/17 19:23 36.7 83 16 126/66 99 Room Air 07/27/17 17:49 37.1 100 18 129/75 98 Room Air Physical Exam VITALS: Vitals are noted on the nurse's note and reviewed by myself. Vital signs stable. GENERAL: 22-year-old male, mildly uncomfortable, in no acute distress, nondiaphoretic, well-developed well-nourished. SKIN: The skin was without rashes, acne noted to the back HEAD: Normocephalic atraumatic. EARS: External auditory canals clear, tympanic membranes pearly null without erythema or effusion bilaterally. EYES: Conjunctivae without injection, sclerae without icterus. Extraocular movements intact. NOSE: Patent, turbinates without inflammation or discharge. No sinus tenderness. MOUTH: Mucous membranes slightly dry. tonsils are moderately enlarged with white exudate. Pharynx without erythema or exudate. Uvula midline. Airway patent. Tongue does not deviate. NECK: Supple without nuchal rigidity. No lymphadenopathy. Cervical spine is nontender. No JVD. HEART: Regular rate and rhythm without murmurs gallops or rubs. LUNGS: Clear to auscultation bilaterally without wheezes, rales or rhonchi. No accessory muscle use. ABDOMEN: Positive bowel sounds x 4.Soft, nontender, without organomegaly. MUSCULOSKELETAL: No muscle atrophy, erythema, or edema noted. Strength 5/5 throughout. NEURO: Patient was alert and oriented to person place and time. Normal sensation to touch. No focal neurological deficits. Medical Decision & Procedures ER Provider Diagnostic Interpretation: CHEST 2 VIEWS ROUTINE CLINICAL HISTORY: Cough and fever. COMPARISON STUDY: Chest radiograph April 23, 2017. FINDINGS: Lung volumes are normal. No pneumothorax or pleural effusion is present. No consolidation is identified. Pulmonary vascularity is normal. Cardiomediastinal silhouette is normal. IMPRESSION: No acute cardiopulmonary findings. Electronically signed by: Hardeep Grace M.D. 07/27/2017 8:14 PM Dictated Date/Time: 07/27/2017 8:13 PM The status of this report is Signed. Draft = Not yet reviewed or approved by Radiologist. Signed = Reviewed and approved by Radiologist. <AttendingPhy></AttendingPhy> <FamilyPhy>[facility]</FamilyPhy> <PrimaryPhy>[facility]</PrimaryPhy> <UnitNumber>[id number]</ UnitNumber> <VisitNumber>[id number]</VisitNumber> <PatientName>MARYKERRI GUERRIERYISEL </PatientName> <DateOfBirth>1995</DateOfBirth> <Location>C.EDB</Location> <ServiceDate>07/27/17</ServiceDate> <MNE>ESINDI</MNE> <OrderingPhy>Yvonne Chandler PA-C</OrderingPhy> <OrderingPhyMNE>f rep ord dr donis</OrderingPhyMNE> < DictatingPhyMNE>f rep dict dr donis</DictatingPhyMNE> <CCListMNE>f rep ct gagandeep</ CCListMNE> <AdmittingPhyMNE>f pt admit dr donis</AdmittingPhyMNE> <AttendingPhyMNE >f pt attend dr donis</AttendingPhyMNE> <ConsultingPhyMNE>f pt consult dr donis</ConsultingPhyMNE> <FamilyPhyMNE>f pt fam dr donis</FamilyPhyMNE> <OtherPhyMNE>f pt other dr mne</OtherPhyMNE> < PrimaryPhyMNE>f pt prim care mne</PrimaryPhyMNE> <ReferringPhyMNE>f pt referring dr mne</ReferringPhyMNE> Laboratory Results 07/27/17 19:00 Red Blood Count 5.54, Mean Corpuscular Volume 79.1, Mean Corpuscular Hemoglobin 27.8, Mean Corpuscular Hemoglobin Concent 35.2, Mean Platelet Volume 9.7, Neutrophils (%) (Auto) 71.5, Lymphocytes (%) (Auto) 20.2, Monocytes (%) (Auto) 6.6, Eosinophils (%) (Auto) 1.1, Basophils (%) (Auto) 0.2, Neutrophils # (Auto) 8.01, Lymphocytes # (Auto) 2.26, Monocytes # (Auto) 0.74, Eosinophils # (Auto) 0.12, Basophils # (Auto) 0.02 07/27/17 19:00 Test 07/27/17 19:00 White Blood Count 11.19 K/uL (4.8-10.8) Red Blood Count 5.54 M/uL (4.7-6.1) Hemoglobin 15.4 g/dL (14.0-18.0) Hematocrit 43.8 % (42-52) Mean Corpuscular Volume 79.1 fL (80-100) Mean Corpuscular Hemoglobin 27.8 pg (25-34) Mean Corpuscular Hemoglobin Concent 35.2 g/dl (32-36) Platelet Count 225 K/uL (130-400) Mean Platelet Volume 9.7 fL (7.4-10.4) Neutrophils (%) (Auto) 71.5 % Lymphocytes (%) (Auto) 20.2 % Monocytes (%) (Auto) 6.6 % Eosinophils (%) (Auto) 1.1 % Basophils (%) (Auto) 0.2 % Neutrophils # (Auto) 8.01 K/uL (1.4-6.5) Lymphocytes # (Auto) 2.26 K/uL (1.2-3.4) Monocytes # (Auto) 0.74 K/uL (0.11-0.59) Eosinophils # (Auto) 0.12 K/uL (0-0.5) Basophils # (Auto) 0.02 K/uL (0-0.2) RDW Standard Deviation 43.6 fL (36.4-46.3) RDW Coefficient of Variation 15.1 % (11.5-14.5) Immature Granulocyte % (Auto) 0.4 % Immature Granulocyte # (Auto) 0.04 K/uL (0.00-0.02) Anion Gap 6.0 mmol/L (3-11) Est Creatinine Clear Calc Drug Dose 142.2 ml/min Estimated GFR () 140.1 Estimated GFR (Non- 120.9 BUN/Creatinine Ratio 13.1 (10-20) Calcium Level 8.9 mg/dl (8.5-10.1) Total Bilirubin 0.4 mg/dl (0.2-1) Aspartate Amino Transf (AST/SGOT) 14 U/L (15-37) Alanine Aminotransferase (ALT/SGPT) 40 U/L (12-78) Alkaline Phosphatase 84 U/L (45-117) Total Protein 8.0 gm/dl (6.4-8.2) Albumin 3.9 gm/dl (3.4-5.0) Globulin 4.1 gm/dl (2.5-4.0) Albumin/Globulin Ratio 1.0 (0.9-2) Monoscreen NEG (NEG) Medications Administered Medications (Trade) Dose Ordered Sig/Jagruti Route Start Time Stop Time Status Last Admin Dose Admin Sodium Chloride 1,000 ml @ 999 mls/hr Q1H1M ONCE IV 07/27/17 18:45 07/27/17 19:45 DC 07/27/17 19:21 999 MLS/HR Ketorolac Tromethamine (Toradol Inj) 30 mg NOW STAT IV 07/27/17 18:45 07/27/17 18:47 DC 07/27/17 19:21 30 MG ED Course Patient was seen and examined Vital signs including blood pressure were reviewed medications list was verified with patient Labs were obtained, and a saline lock was established The patient was hydrated with 1 L of normal saline. He was given Toradol 30 mg IV Imaging was performed and reviewed Upon reevaluation, the patient was feeling much better. We discussed the results of his workup. He voiced understanding. I reviewed discharge instructions the patient. They voiced understanding and had no further questions. Medical Decision Differential diagnosis: Bronchitis, pneumonia, strep pharyngitis, viral pharyngitis, influenza , mononucleosis, peritonsillar abscess This patient is a 22-year-old male that presented to the emergency department with fever and sore throat. He had coarse breath sounds on exam. He also had exudate with moderately swollen tonsils. There was no sign of peritonsillar abscess. His rapid strep was negative. No pneumonia on the x-ray. Given the presentation of his tonsils and fever, I opted to give the patient prescription for antibiotics. He was instructed to start the antibiotics if he was still febrile in 24 hours. He was also encouraged to take ibuprofen and Tylenol for pain. He'll follow-up with [facility] as needed. He will return to the emergency department with any new or worsening symptoms Medication Reconcilliation Current Medication List: was personally reviewed by me Blood Pressure Screening Patient's blood pressure: Normal blood pressure Impression Primary Impression: Pharyngitis Departure Information Dispostion Home / Self-Care Condition GOOD Prescriptions Amoxicillin (AMOXIL) 500 Mg Cap 1 CAP PO TID for 10 Days, #30 CAP Prov: Yvonne Chandler PA-C 07/27/17 Referrals [facility] (PCP) Patient Instructions ED Pharyngitis Strep Poss Ch, My [facility] Additional Instructions You were evaluated in the emergency department for a sore throat and fever. It is important to stay well hydrated. Please increase your fluid intake in particular with sports drinks like Gatorade over the next 48 hours. Ibuprofen 800 mg and/or Tylenol 1000 mg every 8 hours for pain and fever You may also alternate these medications for more effective pain relief: Ibuprofen --4 HRS--> Tylenol --4 HRS--> ibuprofen --4 HRS--> Tylenol .... A prescription for amoxicillin has been provided. Please wait 24 hours. If you are still running a fever, start and finish the entire course of antibiotics. Return to the emergency department if you have any of the following symptoms: -Fever of 103F or greater -Difficulty breathing -Inability to open or closed your mouth fully -Severe head or neck pain
[2017-07-27 19:18] LABS: BASO % 0.2 %; BASO ABS # 0.02 K/uL (0-0.2); COMPLETE YES; EOS % 1.1 %; HEMATOCRIT 43.8 % (42-52); IG% 0.4 %; LYMPH % 20.2 %; LYMPH ABS # 2.26 K/uL (1.2-3.4); MEAN CELL VOLUME 79.1 fL (80-100); MEAN CORPUSCULAR HEMOGLOBIN 27.8 pg (25-34); MEAN CORPUSCULAR HGB CONC 35.2 g/dl (32-36); MEAN PLATELET VOLUME 9.7 fL (7.4-10.4); MONO % 6.6 %; NEUT % 71.5 %; PLATELET COUNT 225 K/uL (130-400); RED BLOOD COUNT 5.54 M/uL (4.7-6.1); WHITE BLOOD COUNT 11.19 K/uL (4.8-10.8)
[2017-07-27 19:23] VITALS: TEMP 36.7
[2017-07-27 19:41] LABS: BUN/CREATININE RATIO 13.1 (10-20); CALCIUM 8.9 mg/dl (8.5-10.1); CREATININE 0.91 mg/dl (0.60-1.40); POTASSIUM 3.6 mmol/L (3.5-5.1)
--- NOTE | 2017-07-27 20:16 | DIAGNOSTIC IMAGING REPORT ---
CHEST 2 VIEWS ROUTINE CLINICAL HISTORY: Cough and fever. COMPARISON STUDY: Chest radiograph April 23, 2017. FINDINGS: Lung volumes are normal. No pneumothorax or pleural effusion is present. No consolidation is identified. Pulmonary vascularity is normal. Cardiomediastinal silhouette is normal. IMPRESSION: No acute cardiopulmonary findings. Electronically signed by: Hardeep Grace M.D. 07/27/2017 8:14 PM Dictated Date/Time: 07/27/2017 8:13 PM
[2017-07-27 20:54] VITALS: BP 125/82; PULSE 93; O2SAT 99
[2017-07-27] MEDS ORDERED: AMOX500C3 PO (21:17)
== END 2017-07-27 21:20 | disposition home or self-care (01) ==
LOC: C.EDB 17:35
DX: J02.9 Acute pharyngitis, unspecified (principal); F17.200 Nicotine dependence, unspecified, uncomplicated; Z82.49 Family history of ischemic heart disease and other diseases of the circulatory system

== ENCOUNTER 2017-12-03 17:38 | Emergency (ER) | payer OTHER ==
[~2017-12-03] VITALS: Ht 188 cm; Wt 94.2 kg
[2017-12-03 17:44] VITALS: Ht 188 cm; Wt 94.2 kg
[2017-12-03] MEDS ORDERED: SODIUM CHLORIDE 0.9% 1000ML 1,000 ML IV STA (17:55)
[2017-12-03] MEDS ORDERED: KETOROLAC TROMETHAMINE 30 MG/ML VIAL IV STA (17:55)
[2017-12-03] MEDS ORDERED: ACETAMINOPHEN 500 MG TAB PO STA (17:56)
[2017-12-03 18:19] LABS: BASO % 0.2 %; BASO ABS # 0.02 K/uL (0-0.2); EOS % 1.9 %; EOS ABS # 0.19 K/uL (0-0.5); HEMATOCRIT 43.6 % (42-52); HEMOGLOBIN 15.6 g/dL (14.0-18.0); IG# 0.03 K/uL (0.00-0.02); LYMPH % 13.8 %; LYMPH ABS # 1.36 K/uL (1.2-3.4); MEAN CORPUSCULAR HGB CONC 35.8 g/dl (32-36); MEAN PLATELET VOLUME 9.8 fL (7.4-10.4); MONO ABS # 0.69 K/uL (0.11-0.59); NEUT % 76.8 %; NEUT ABS # 7.57 K/uL (1.4-6.5); PLATELET COUNT 205 K/uL (130-400); RED CELL DISTRIBUTION WIDTH CV 13.8 % (11.5-14.5); RED CELL DISTRIBUTION WIDTH SD 40.8 fL (36.4-46.3); WHITE BLOOD COUNT 9.86 K/uL (4.8-10.8)
[2017-12-03 18:37] LABS: ALBUMIN 3.9 gm/dl (3.4-5.0); CALCIUM 8.9 mg/dl (8.5-10.1); CREATININE 0.92 mg/dl (0.60-1.40); POTASSIUM 3.6 mmol/L (3.5-5.1)
[2017-12-03 18:40] LABS: TOTAL PROTEIN 7.7 gm/dl (6.4-8.2)
[2017-12-03 18:51] LABS: INFLUENZA B ANTIGEN Neg for Influ B (NEG)
--- NOTE | 2017-12-03 18:57 | DIAGNOSTIC IMAGING REPORT ---
CHEST ONE VIEW PORTABLE HISTORY: 22 years-old Male cough acute cough and fever COMPARISON: Chest radiographs 07/27/2017 TECHNIQUE: Portable AP view of the chest FINDINGS: The cardiomediastinal and hilar silhouettes are within normal limits. There is no pneumothorax, pleural effusion, focal airspace consolidation or overt pulmonary edema. Bones of the chest appear grossly intact. IMPRESSION: No acute process. The above report was generated using voice recognition software. It may contain grammatical, syntax or spelling errors. Electronically signed by: Bharathi Santos M.D. 12/03/2017 6:56 PM Dictated Date/Time: 12/03/2017 6:54 PM
[2017-12-03 19:10] VITALS: TEMP 37.1
[2017-12-03 20:39] VITALS: BP 125/62; PULSE 94; O2SAT 96
--- NOTE | 2017-12-03 21:50 | EMERGENCY ROOM VISIT NOTE ---
History Report prepared by Christopher: Erica Regalado Under the Supervision of: Dr. Nayan Washington D.O. First contact with patient: 17:48 Chief Complaint: FLU LIKE SX Stated Complaint: EXTREME FEAVER,HEADACHE,FLU History of Present Illness The patient is a 22 year old male who presents to the Emergency Room with complaints of persistent flu symptoms starting this morning. He reports fatigue , headache, subjective fever, chills, chest pain, cough, rhinorrhea, and sore throat. The chest pain worsens with breathing. He denies any ear pain. His immunizations are up to date. He recently traveled to [facility]. He denies any history of diabetes, hypertension, cholesterol, or blood clots. He does smoke. He denies any sick contacts. Source of History: patient Onset: this morning Position: other (global) Quality: other (flu symptoms) Timing: other (persistent) Associated Symptoms: + fevers, + chills, + headache, + sorethroat, + cough, + chest pain, + fatigue Review of Systems See HPI for pertinent positives & negatives. A total of 10 systems reviewed and were otherwise negative. Past Medical & Surgical Medical Problems: (1) Blister of left heel Family History Patient reports no known family medical history. Social History Smoking Status: Current Every Day Smoker Drug Use: none Marital Status: single Occupation Status: [employer] student Current/Historical Medications No Active Prescriptions or Reported Meds Allergies Coded Allergies: No Known Allergies (Unverified , 12/03/17) Physical Exam Vital Signs Date Time Temp Pulse Resp B/P (MAP) Pulse Ox O2 Delivery O2 Flow Rate FiO2 12/03/17 20:39 94 18 125/62 96 12/03/17 19:10 37.1 100 20 121/65 98 Room Air 12/03/17 17:44 37.4 115 20 113/71 96 Room Air Physical Exam GENERAL: Sitting up in bed, disheveled, no acute distress, nontoxic EYE EXAM: normal conjunctiva. OROPHARYNX: no exudate, no erythema, lips, buccal mucosa, and tongue normal and mucous membranes are dry NECK: supple, no nuchal rigidity, no adenopathy, non-tender LUNGS: Clear to auscultation. Normal chest wall mechanics CHEST: reproducible anterior chest wall pain HEART: tachycardic. No murmurs, S1 normal and S2 normal ABDOMEN: abdomen soft, non-tender, normo-active bowel sounds, no masses, no rebound or guarding. BACK: Back is symmetrical on inspection and there is no deformity, no midline tenderness, no CVA tenderness. SKIN: no rashes and no bruising UPPER EXTREMITIES: upper extremities are grossly normal. LOWER EXTREMITIES: No pitting edema. NEURO EXAM: Normal sensorium, cranial nerves II-XII grossly intact, normal speech, no gross weakness of arms, no gross weakness of legs. Ambulates without difficulty. Medical Decision & Procedures ER Provider Diagnostic Interpretation: Xray results as stated below per my and the radiologist's interpretation: CHEST ONE VIEW PORTABLE HISTORY: 22 years-old Male cough acute cough and fever COMPARISON: Chest radiographs 07/27/2017 TECHNIQUE: Portable AP view of the chest FINDINGS: The cardiomediastinal and hilar silhouettes are within normal limits. There is no pneumothorax, pleural effusion, focal airspace consolidation or overt pulmonary edema. Bones of the chest appear grossly intact. IMPRESSION: No acute process. The above report was generated using voice recognition software. It may contain grammatical, syntax or spelling errors. Electronically signed by: Bharathi Santos M.D. 12/03/2017 6:56 PM Dictated Date/Time: 12/03/2017 6:54 PM Laboratory Results 12/03/17 18:05 Red Blood Count 5.38, Mean Corpuscular Volume 81.0, Mean Corpuscular Hemoglobin 29.0, Mean Corpuscular Hemoglobin Concent 35.8, Mean Platelet Volume 9.8, Neutrophils (%) (Auto) 76.8, Lymphocytes (%) (Auto) 13.8, Monocytes (%) (Auto) 7.0, Eosinophils (%) (Auto) 1.9, Basophils (%) (Auto) 0.2, Neutrophils # (Auto) 7.57, Lymphocytes # (Auto) 1.36, Monocytes # (Auto) 0.69, Eosinophils # (Auto) 0.19, Basophils # (Auto) 0.02 12/03/17 18:05 Test 12/03/17 18:05 12/03/17 18:15 White Blood Count 9.86 K/uL (4.8-10.8) Red Blood Count 5.38 M/uL (4.7-6.1) Hemoglobin 15.6 g/dL (14.0-18.0) Hematocrit 43.6 % (42-52) Mean Corpuscular Volume 81.0 fL (80-100) Mean Corpuscular Hemoglobin 29.0 pg (25-34) Mean Corpuscular Hemoglobin Concent 35.8 g/dl (32-36) Platelet Count 205 K/uL (130-400) Mean Platelet Volume 9.8 fL (7.4-10.4) Neutrophils (%) (Auto) 76.8 % Lymphocytes (%) (Auto) 13.8 % Monocytes (%) (Auto) 7.0 % Eosinophils (%) (Auto) 1.9 % Basophils (%) (Auto) 0.2 % Neutrophils # (Auto) 7.57 K/uL (1.4-6.5) Lymphocytes # (Auto) 1.36 K/uL (1.2-3.4) Monocytes # (Auto) 0.69 K/uL (0.11-0.59) Eosinophils # (Auto) 0.19 K/uL (0-0.5) Basophils # (Auto) 0.02 K/uL (0-0.2) RDW Standard Deviation 40.8 fL (36.4-46.3) RDW Coefficient of Variation 13.8 % (11.5-14.5) Immature Granulocyte % (Auto) 0.3 % Immature Granulocyte # (Auto) 0.03 K/uL (0.00-0.02) D-Dimer 260 ug/L FEU (0-500) Anion Gap 10.0 mmol/L (3-11) Est Creatinine Clear Calc Drug Dose 149.0 ml/min Estimated GFR () 138.3 Estimated GFR (Non- 119.3 BUN/Creatinine Ratio 14.6 (10-20) Calcium Level 8.9 mg/dl (8.5-10.1) Total Bilirubin 0.5 mg/dl (0.2-1) Direct Bilirubin 0.1 mg/dl (0-0.2) Aspartate Amino Transf (AST/SGOT) 21 U/L (15-37) Alanine Aminotransferase (ALT/SGPT) 50 U/L (12-78) Alkaline Phosphatase 76 U/L (45-117) Total Protein 7.7 gm/dl (6.4-8.2) Albumin 3.9 gm/dl (3.4-5.0) Lipase 146 U/L (73-393) Urine Color YELLOW Urine Appearance CLEAR (CLEAR) Urine pH 6.5 (4.5-7.5) Urine Specific [place] 1.017 (1.000-1.030) Urine Protein NEG (NEG) Urine Glucose (UA) NEG (NEG) Urine Ketones NEG (NEG) Urine Occult Blood NEG (NEG) Urine Nitrite NEG (NEG) Urine Bilirubin NEG (NEG) Urine Urobilinogen NEG (NEG) Urine Leukocyte Esterase NEG (NEG) Urine WBC (Auto) 1-5 /hpf (0-5) Urine RBC (Auto) 0-4 /hpf (0-4) Urine Hyaline Casts (Auto) 0 /lpf (0-5) Urine Epithelial Cells (Auto) 5-10 /lpf (0-5) Urine Bacteria (Auto) NEG (NEG) Influenza Type A Antigen Neg for Influ A (NEG) Influenza Type B Antigen Neg for Influ B (NEG) Laboratory results per my review. Medications Administered Medications (Trade) Dose Ordered Sig/Jagruti Route Start Time Stop Time Status Last Admin Dose Admin Sodium Chloride 1,000 ml @ 999 mls/hr Q1H1M STAT IV 12/03/17 17:55 12/03/17 18:55 DC 12/03/17 18:10 999 MLS/HR Ketorolac Tromethamine (Toradol Inj) 30 mg NOW STAT IV 12/03/17 17:55 12/03/17 17:56 DC 12/03/17 18:12 30 MG Acetaminophen (Tylenol Tab) 1,000 mg NOW STAT PO 12/03/17 17:56 12/03/17 17:57 DC 12/03/17 18:11 1,000 MG ED Course ED COURSE: Vital signs were reviewed and showed tachycardia. The patients medical record was reviewed The above diagnostic studies were performed and reviewed. ED treatments and interventions as stated above. 1750: The patient was evaluated in room B11B. A complete history and physical examination was performed. 1754: Toradol Inj 30 mg IV, NSS 1000 ml @ 999 mls/hr IV. 1755: Acetaminophen 1000 mg PO. 1933: I reevaluated the patient. I updated him on the results. 2028: Upon reevaluation, the patient is resting comfortably. I discussed my findings with the patient and he understands and agrees with the treatment plan. Based on the patients age, coexisting illnesses, exam and lab findings the decision to treat as an outpatient was made. The patient remained stable while under my care. The patient appeared well at the time of discharge. Medical Decision Differential diagnosis includes etiologies such as sepsis, UTI, pneumonia, metabolic, electrolyte abnormalities, cardiac sources, intracerebral event, toxicologic, neurologic, as well as others were entertained. Patient is a 22-year-old male who presents to ER for cough, runny nose, sore throat, ear congestion and diffuse myalgias. Patient has had a subjective cough as well. CBC all BMP, LFTs, bilirubin lipase is unremarkable. D-dimer was negative and a low risk patient with travel. UA was negative. Chest x-ray unremarkable. Influenza A and B were negative. Patient was given Toradol and Tylenol. Patient was given fluids. Patient was feeling significantly better. Patient was discharged follow-up with PCP as an outpatient. Discussed with Pt concerning signs and symptoms to watch out for. Pt was instructed to follow up with their PCP and discussed with the patient their option to return to the ED at anytime for persistent or worsening symptoms. The appropriate anticipatory guidance and out-patient management, including indications for return to the emergency department, were explained at length to the patient and understood. Medication Reconcilliation Current Medication List: was personally reviewed by me Blood Pressure Screening Patient's blood pressure: Normal blood pressure Blood pressure disposition: Did not require urgent referral Impression Primary Impression: Viral URI with cough Scribe Attestation The scribe's documentation has been prepared under my direction and personally reviewed by me in its entirety. I confirm that the note above accurately reflects all work, treatment, procedures, and medical decision making performed by me. Departure Information Dispostion Home / Self-Care Prescriptions No Active Prescriptions or Reported Meds Referrals No Doctor, Assigned (PCP) Forms HOME CARE DOCUMENTATION FORM, IMPORTANT VISIT INFORMATION Patient Instructions ED URI Viral, My [facility] Additional Instructions Please follow up with your primary care doctor or if you are a student, [facility] with in the next 24 hours. Any worsening of your symptoms, please return to the ED immediately. This includes any fevers greater than 100.4, worsening pain, chest pain, shortness breath, persistent nausea, vomiting, unable to eat or drink, or any other concerning signs or symptoms from your standpoint. Please take Tylenol or Motrin as needed for fevers and muscle aches.
[2017-12-04] MEDS ORDERED: ONDA4TAB10 SL (17:24)
== END 2017-12-03 20:40 | disposition home or self-care (01) ==
LOC: C.EDB 17:40
DX: J06.9 Acute upper respiratory infection, unspecified (principal); R05 Cough; F17.200 Nicotine dependence, unspecified, uncomplicated

== ENCOUNTER 2017-12-04 15:42 | Emergency (ER) | payer OTHER ==
[~2017-12-04] VITALS: Ht 188 cm; Wt 92.2 kg
[2017-12-04 15:45] VITALS: Ht 188 cm; Wt 92.2 kg
[2017-12-04] MEDS ORDERED: SODIUM CHLORIDE 0.9% 1000ML 1,000 ML IV STA (16:05)
[2017-12-04] MEDS ORDERED: ONDANSETRON INJ 2 MG/ML 2 ML VIAL IV STA (16:05)
[2017-12-04] MEDS ORDERED: KETOROLAC TROMETHAMINE 30 MG/ML VIAL IV STA (16:05)
--- NOTE | 2017-12-04 16:44 | EMERGENCY ROOM VISIT NOTE ---
History First contact with patient: 15:50 Chief Complaint: FLU LIKE SX Stated Complaint: FEVER, COLDNESS,WEAKNES, FLU History of Present Illness The patient is a 22 year old male who presents to the Emergency Room with complaints of fever, chills, weakness, and influenza-like symptoms. The patient states he was here yesterday and diagnosed with an influenza-like illness. He did have labs and chest x-ray done yesterday which were negative, including d-dimer and influenza testing. The patient states he has been exhibiting intermittent fever, headache, weakness, fatigue for the past 2 days. He states he did improve yesterday with medication and was discharged home. He states he has been taking Tylenol since last night for the fever which has been helping to keep the fever down, however it has not been very beneficial for treating the muscle aches. This morning when he awoke, he states he is feeling the same as yesterday, but his symptoms are slightly worse. He states today he did vomit twice, has been more weak, lethargic, and is experiencing ongoing cough. He states he does have some chest discomfort while coughing, but this is reproducible and has improved since yesterday. He denies significant dyspnea or wheezing. Of note, the patient did recently travel to and from [facility], and returned last week. He denies any abdominal pain, urinary disturbances, numbness or tingling, neck or back pain, coughing up sputum or blood, earache, or other concerning symptoms. Review of Systems A complete 10 point review of systems was reviewed with the patient with pertinent positives and negatives as per history of present illness. All else were negative. Past Medical/Surgical History Medical Problems: (1) Blister of left heel Family History Patient reports no known family medical history. Social History Smoking Status: Current Every Day Smoker Drug Use: none Marital Status: single Occupation Status: [employer] student Current/Historical Medications Scheduled Ondasetron Odt (Zofran Odt), 4 MG SL Q6H Physical Exam Vital Signs Date Time Temp Pulse Resp B/P (MAP) Pulse Ox O2 Delivery O2 Flow Rate FiO2 12/04/17 16:52 103 20 122/68 99 Room Air 12/04/17 16:48 93 12/04/17 15:45 37.7 121 20 145/78 98 Room Air Physical Exam VITALS: Vitals are noted on the nurse's note and reviewed by myself. Vital signs stable, however the patient is tachycardic with a heart rate of 120. GENERAL: This is a 22-year-old male, ill-appearing, but nontoxic, in no acute distress, nondiaphoretic, well-developed well-nourished. SKIN: The skin was without rashes, erythema, edema, or bruising. There is no tenting of the skin. Capillary reflex less than 2 seconds. HEAD: Normocephalic atraumatic. EARS: External auditory canals clear, tympanic membranes pearly null without erythema or effusion bilaterally. EYES: Pupils equal round and reactive to light and accommodation. Conjunctivae without injection, sclerae without icterus. Extraocular movements intact. NOSE: Patent, turbinates without inflammation or discharge. No sinus tenderness. MOUTH: Mucous membranes moist. Tonsils are not enlarged. Pharynx without erythema or exudate. Uvula midline. Airway patent. Tongue does not deviate. NECK: Supple without nuchal rigidity. No lymphadenopathy. No thyromegaly. Cervical spine is nontender. No JVD. HEART: Regular rate and rhythm without murmurs gallops or rubs. LUNGS: Clear to auscultation bilaterally without wheezes, rales or rhonchi. No dullness to percussion. No retractions or accessory muscle use. ABDOMEN: Positive bowel sounds x 4. Normal tympanic percussion. Soft, nontender, without masses or organomegaly. Carpenter sign negative. No guarding or rebound tenderness. MUSCULOSKELETAL: The patient does have tenderness of the mid-left chest wall. This is reproducible on palpation. No muscle atrophy, erythema, or edema noted. Full range of motion without joint tenderness in all extremities. Normal gait. Strength 5/5 throughout. NEURO: Patient was alert and oriented to person place and time. Normal sensation to light and sharp touch. Deep tendon reflexes 2+ throughout. No focal neurological deficits. Medical Decision & Procedures ER Provider Diagnostic Interpretation: CBC was without leukocytosis, anemia, thrombocytopenia. CMP was without renal, electrolytes, hepatic abnormalities. Laboratory Results 12/04/17 16:25 Red Blood Count 5.00, Mean Corpuscular Volume 81.8, Mean Corpuscular Hemoglobin 28.6, Mean Corpuscular Hemoglobin Concent 35.0, Mean Platelet Volume 9.5, Neutrophils (%) (Auto) 80.4, Lymphocytes (%) (Auto) 9.3, Monocytes (%) (Auto) 9.3, Eosinophils (%) (Auto) 0.6, Basophils (%) (Auto) 0.1, Neutrophils # (Auto) 5.41, Lymphocytes # (Auto) 0.63, Monocytes # (Auto) 0.63, Eosinophils # (Auto) 0.04, Basophils # (Auto) 0.01 12/04/17 16:25 Test 12/04/17 16:25 White Blood Count 6.74 K/uL (4.8-10.8) Red Blood Count 5.00 M/uL (4.7-6.1) Hemoglobin 14.3 g/dL (14.0-18.0) Hematocrit 40.9 % (42-52) Mean Corpuscular Volume 81.8 fL (80-100) Mean Corpuscular Hemoglobin 28.6 pg (25-34) Mean Corpuscular Hemoglobin Concent 35.0 g/dl (32-36) Platelet Count 162 K/uL (130-400) Mean Platelet Volume 9.5 fL (7.4-10.4) Neutrophils (%) (Auto) 80.4 % Lymphocytes (%) (Auto) 9.3 % Monocytes (%) (Auto) 9.3 % Eosinophils (%) (Auto) 0.6 % Basophils (%) (Auto) 0.1 % Neutrophils # (Auto) 5.41 K/uL (1.4-6.5) Lymphocytes # (Auto) 0.63 K/uL (1.2-3.4) Monocytes # (Auto) 0.63 K/uL (0.11-0.59) Eosinophils # (Auto) 0.04 K/uL (0-0.5) Basophils # (Auto) 0.01 K/uL (0-0.2) RDW Standard Deviation 41.0 fL (36.4-46.3) RDW Coefficient of Variation 13.7 % (11.5-14.5) Immature Granulocyte % (Auto) 0.3 % Immature Granulocyte # (Auto) 0.02 K/uL (0.00-0.02) Anion Gap 5.0 mmol/L (3-11) Est Creatinine Clear Calc Drug Dose 138.4 ml/min Estimated GFR () 126.5 Estimated GFR (Non- 109.2 BUN/Creatinine Ratio 9.4 (10-20) Calcium Level 8.5 mg/dl (8.5-10.1) Total Bilirubin 0.3 mg/dl (0.2-1) Aspartate Amino Transf (AST/SGOT) 21 U/L (15-37) Alanine Aminotransferase (ALT/SGPT) 41 U/L (12-78) Alkaline Phosphatase 74 U/L (45-117) Total Protein 7.5 gm/dl (6.4-8.2) Albumin 3.6 gm/dl (3.4-5.0) Globulin 3.9 gm/dl (2.5-4.0) Albumin/Globulin Ratio 0.9 (0.9-2) Medications Administered Medications (Trade) Dose Ordered Sig/Jagruti Route Start Time Stop Time Status Last Admin Dose Admin Sodium Chloride 1,000 ml @ 999 mls/hr Q1H1M STAT IV 12/04/17 16:05 12/04/17 17:05 DC 12/04/17 16:33 999 MLS/HR Ondansetron HCl (Zofran Inj) 4 mg NOW STAT IV 12/04/17 16:05 12/04/17 16:06 DC 12/04/17 16:27 4 MG Ketorolac Tromethamine (Toradol Inj) 30 mg NOW STAT IV 12/04/17 16:05 12/04/17 16:06 DC 12/04/17 16:28 30 MG ECG Indication: chest pain, tachycardia Rate (beats per minute): 101 Rhythm: sinus tachycardia Findings: no acute ischemic change, no ectopy ED Course The patient was seen and evaluated as above. Previous medical records reviewed. IV access obtained, labs drawn. EKG was ordered and performed. This was reviewed and interpreted by myself as above. The patient was given 1 L normal saline solution, 30 mg Toradol, and 4 mg Zofran IV. He was reevaluated and notes very mild improvement in his body aches and nausea. I discussed the case with Dr. Henriquez. Discharge instructions reviewed, and patient was discharged home in good condition. Medical Decision Differential diagnosis includes upper respiratory infection, influenza, bronchitis, pneumonia, PE, DVT, acute sinusitis, acute pharyngitis, sepsis, malignancy, and others This is a 22-year-old male patient presents to the emergency department less than 24 hours after previous discharge from the ED complaining of ongoing symptoms. The patient was diagnosed with an upper respiratory infection with a cough, and it was like symptoms yesterday. He states since he has been home he has been taking Tylenol, but continues to feel ill. He has not taken any cold or flu medicine, ibuprofen, or any other remedies. He states when he awoke, he is feeling the same symptoms, but feels worse than he did yesterday. Repeat examination was without significant abnormalities, and labs and EKG were performed. The patient did have a negative d-dimer yesterday, and EKG without significant abnormalities. I discussed the case with Dr. Henriquez, as well as Dr. Washington, who saw the patient yesterday. The patient has inflamed like symptoms, despite his recent travel to [facility], I do not suspect pulmonary embolism. Dr. Henriquez and Dr. Washington were both in agreement. I had a long discussion with the patient at bedside regarding outpatient management for influenza-like illness. The patient verbalizes understanding. He will be provided with a prescription for Zofran to help with nausea and vomiting, as this is his new symptom today. Medication Reconcilliation Current Medication List: was personally reviewed by me Blood Pressure Screening Patient's blood pressure: Normal blood pressure Impression Primary Impression: Influenza-like symptoms Departure Information Dispostion Home / Self-Care Condition GOOD Prescriptions Ondasetron Odt (ZOFRAN ODT) 4 Mg Tab 4 MG SL Q6H for Nausea, #6 TAB Prov: Dawna Cueva PA-C 12/04/17 Referrals No Doctor, Assigned (PCP) [facility] Patient Instructions ED Flu, My [facility] Additional Instructions You were seen and evaluated in the emergency department today for influenza- like symptoms. I do feel that based on your symptoms, and the duration of illness, this is likely viral in nature. As discussed, antibiotics will not treat viral illness. You may feel ill for 10-14 days. You have been prescribed Zofran to be used for any nausea or vomiting. Take as prescribed. For your sore throat, you may use a 1:1 mixture of liquid Benadryl and liquid Maalox. Gargle and spit this mixture. It will help to soothe the throat and provide some relief. Drink warm tea with honey and lemon, as this will also help to soothe the throat. Gargle with salt water frequently. As discussed, you should take OTC Mucinex and/or Sudafed for your symptoms. Please do not exceed the recommended daily dosages. Ibuprofen(Motrin, Advil) may be used for fever or pain. Use 600mg every six hours as needed. Take with food. Avoid using more than 2400mg in a 24 hour period. Do not use 2400mg per day for more than three consecutive days without physician direction. Prolonged inappropriate use can lead to stomach upset or ulcers. This medication will help with the swelling in your sinuses. (AND/OR) Acetaminophen(Tylenol) may be used for fever or pain. Use 1000mg every six hours as needed. Avoid using more than 3000mg in a 24 hour period. *Alternate these medications every 3-4 hours for increased fever/pain control. For congestion, you may use Flonase OTC. You may want to consider zinc, echinacea, and vitamin C to help boost your immunity. Please get plenty of rest and drink plenty of fluids. No school until you are fever-free for at least 24 hours without medications. Please return or follow-up with your PCP in 1 week if you are not experiencing any improvement in your symptoms. Return to the emergency department for coughing up blood, difficulty breathing, chest pain, worsening symptoms, or for other concerns.
[2017-12-04 16:51] LABS: BASO % 0.1 %; BASO ABS # 0.01 K/uL (0-0.2); EOS % 0.6 %; EOS ABS # 0.04 K/uL (0-0.5); HEMATOCRIT 40.9 % (42-52); HEMOGLOBIN 14.3 g/dL (14.0-18.0); IG# 0.02 K/uL (0.00-0.02); LYMPH % 9.3 %; LYMPH ABS # 0.63 K/uL (1.2-3.4); MEAN CELL VOLUME 81.8 fL (80-100); MEAN CORPUSCULAR HEMOGLOBIN 28.6 pg (25-34); MEAN PLATELET VOLUME 9.5 fL (7.4-10.4); MONO % 9.3 %; MONO ABS # 0.63 K/uL (0.11-0.59); NEUT % 80.4 %; NEUT ABS # 5.41 K/uL (1.4-6.5); PLATELET COUNT 162 K/uL (130-400); RED CELL DISTRIBUTION WIDTH CV 13.7 % (11.5-14.5); WHITE BLOOD COUNT 6.74 K/uL (4.8-10.8)
[2017-12-04 17:03] LABS: ALBUMIN 3.6 gm/dl (3.4-5.0); CALCIUM 8.5 mg/dl (8.5-10.1); CREATININE 0.99 mg/dl (0.60-1.40); POTASSIUM 3.3 mmol/L (3.5-5.1)
[2017-12-04 17:06] LABS: TOTAL PROTEIN 7.5 gm/dl (6.4-8.2)
[2017-12-04] MEDS ORDERED: ONDA4TAB10 SL (17:24)
[2017-12-04 17:31] VITALS: BP 121/68; PULSE 97; TEMP 37.2; O2SAT 98
== END 2017-12-04 17:40 | disposition home or self-care (01) ==
LOC: C.EDB 15:44 → C.EDA 17:40
DX: R50.9 Fever, unspecified (principal); R53.1 Weakness; F17.210 Nicotine dependence, cigarettes, uncomplicated